=== PATIENT | male | born 1950 | race Caucasian/White ===

== ENCOUNTER 2021-05-25 08:48 | Emergency (ER) | payer OTHER ==
[~2021-05-25] VITALS: Ht 180.3 cm; Wt 117.9 kg
--- NOTE | 2021-05-25 08:55 | NUR ---
BIB [facility] IN A SITTING POSITION, CALLED 911 BECAUSE HIS BP WAS 209/117. DENIES ANY ACCOMPANYING SX. RESPIRATION REGULAR AND UNLABORED. ATTACHED TO THE MONITOR
[2021-05-25] MEDS ORDERED: hydrALAZINE HCL IV 20 MG VIAL IV ONE (09:00)
[2021-05-25] MEDS ORDERED: hydrALAZINE HCL IV 20 MG VIAL ONE (09:30)
[2021-05-25 09:31] LABS: BASOPHILS % (AUTO) 0.6 % (0.0-2.0); EOSINOPHILS % (AUTO) 2.3 % (0.0-6.0); HEMATOCRIT 35 % (39-51); HEMOGLOBIN 11.6 g/dL (13.5-17.5); LYMPHOCYTES # (AUTO) 3.1 K/uL (0.8-4.8); LYMPHOCYTES % (AUTO) 44.9 % (20.0-44.0); MEAN CORPUSCULAR HGB CONC 33 g/dl (31.0-36.0); MEAN CORPUSCULAR VOLUME 83 fL (80-96); MONOCYTES # (AUTO) 0.6 K/uL (0.1-1.30); MONOCYTES % (AUTO) 9.2 % (2.0-12.0); NEUTROPHILS # (AUTO) 2.9 K/uL (1.8-8.9); PLATELET COUNT (AUTO) 312 K/uL (150-450); RED BLOOD CELL COUNT(AUTO) 4.18 MIL/uL (4.5-6.0); WHITE BLOOD COUNT (AUTO) 6.9 K/uL (4.3-11.0)
[2021-05-25 09:42] LABS: CALCIUM, SERUM 8.7 mg/dL (8.5-10.1); CARBON DIOXIDE 24 mmol/L (21-32); CHLORIDE 101 mmol/L (98-107); GLUCOSE 254 mg/dL (74-106); POTASSIUM 4.4 mmol/L (3.5-5.1); SODIUM SERUM 137 mmol/L (136-145)
[2021-05-25 09:43] LABS: CREATININE 1.2 mg/dL (0.6-1.3); UREA NITROGEN, BLOOD 13 mg/dL (7-18)
[2021-05-25 10:56] VITALS: BP 140/85
--- NOTE | 2021-05-25 10:56 | NUR ---
IV removed. Catheter intact and site benign. Pressure and 4x4 applied to site. No bleeding noted.Patient discharged to home in stable condition. Written and verbal after care instructions given. Patient verbalizes understanding of instruction.
== END 2021-05-25 10:56 | disposition home or self-care (01) ==
LOC: ER 09:04
DX: I10 Essential (primary) hypertension (principal); E11.9 Type 2 diabetes mellitus without complications; Z60.2 Problems related to living alone
CPT/HCPCS: 36415; 71045; 80048; 84484; 85025; 93005; 96374; 99285; J0360

== ENCOUNTER 2021-10-22 04:11 | Emergency (ER) | payer OTHER ==
[~2021-10-22] VITALS: Ht 170.2 cm; Wt 99.8 kg
[2021-10-22] MEDS ORDERED: ASPIRIN 81 MG TAB.CHEW PO ONE (04:30)
[2021-10-22] MEDS ORDERED: hydrALAZINE HCL IV 20 MG VIAL IV ONE (04:30)
[2021-10-22] MEDS ORDERED: ASPIRIN 81 MG TAB.CHEW ONE (04:34)
[2021-10-22] MEDS ORDERED: hydrALAZINE HCL IV 20 MG VIAL ONE (04:34)
--- NOTE | 2021-10-22 04:37 | NUR ---
PATIENT BIBSELF C/O WAKING UP NOT FEELING WELL. PT TOOK BP AT HOME, PT NOTED IT TO BE HIGH. PATIENT IS A/O X 4, RR EVEN AND UNLABORED. NO SOB NOTED. PATIENT TAKEN TO ER BED 11. PATIENT CONNECTED TO CONTACT CENTER REPRESENTATIVE AND POX. WILL CONTINUE TO MONITOR.
--- NOTE | 2021-10-22 04:38 | NUR ---
LAC #20G S/L; PATENT AND INTACT. BLOOD COLLECTED AND SENT TO LAB
--- NOTE | 2021-10-22 04:40 | NUR ---
WAREHOUSE REPRESENTATIVE AT PT'S BEDSIDE
[2021-10-22 04:51] LABS: BASOPHILS % (AUTO) 0.6 % (0.0-2.0); HEMATOCRIT 35 % (39-51); HEMOGLOBIN 11.6 g/dL (13.5-17.5); LYMPHOCYTES # (AUTO) 3.5 K/uL (0.8-4.8); LYMPHOCYTES % (AUTO) 50.5 % (20.0-44.0); MEAN CORPUSCULAR HGB CONC 33 g/dl (31.0-36.0); MEAN CORPUSCULAR VOLUME 79 fL (80-96); MONOCYTES # (AUTO) 0.6 K/uL (0.1-1.30); MONOCYTES % (AUTO) 9.5 % (2.0-12.0); NEUTROPHILS # (AUTO) 2.6 K/uL (1.8-8.9); NEUTROPHILS % (AUTO) 37.4 % (43.0-81.0); PLATELET COUNT (AUTO) 319 K/uL (150-450); RED BLOOD CELL COUNT(AUTO) 4.45 MIL/uL (4.5-6.0); WHITE BLOOD COUNT (AUTO) 6.9 K/uL (4.3-11.0)
[2021-10-22 05:48] LABS: CARBON DIOXIDE 26 mmol/L (21-32); CHLORIDE 102 mmol/L (98-107); GLUCOSE 190 mg/dL (74-106); POTASSIUM 4.1 mmol/L (3.5-5.1); SODIUM SERUM 136 mmol/L (136-145)
[2021-10-22 05:49] LABS: CALCIUM, SERUM 9.4 mg/dL (8.5-10.1); CREATININE 1.2 mg/dL (0.6-1.3); UREA NITROGEN, BLOOD 14 mg/dL (7-18)
--- NOTE | 2021-10-22 06:17 | NUR ---
Patient discharged to home in stable condition. Written and verbal after care instructions given. Patient verbalizes understanding of instruction. IV line removed and patient ambulated out of ER with steady gait.
[2021-10-22 06:19] VITALS: BP 160/87
[2021-10-23] MEDS ORDERED: METO1TAB11 PO (07:23)
== END 2021-10-22 06:21 | disposition home or self-care (01) ==
LOC: ER 04:17
DX: I16.0 Hypertensive urgency (principal); R94.31 Abnormal electrocardiogram [ECG] [EKG]; E11.9 Type 2 diabetes mellitus without complications; Z60.2 Problems related to living alone
CPT/HCPCS: 36415; 71045; 80048; 84484; 85025; 85730; 93005; 96374; 99285; J0360

== ENCOUNTER 2021-10-23 05:55 | Emergency (ER) | payer OTHER ==
[~2021-10-23] VITALS: Ht 170.2 cm; Wt 99.8 kg
--- NOTE | 2021-10-23 06:29 | NUR ---
PT BIBS C/O HTN. PT ASYMPTOMATIC BUT STATED HE TOOK HIS MORNING BP AND NOTICED IT WAS IN THE 220S. PT HAS BEEN COMPLIENT WITH PRESCRIBED METROPROLOL AND LAST DOSE WAS AT 0500. PT DENIES C/P, CHAHAL, OR SOB. PT AWAKE AND ALERT PLACED ON MONITOR AND PT IS HYPERTENSIVE IN 200S. PA WAS AT THE BEDSIDE FOR EVAL.
[2021-10-23] MEDS ORDERED: METO1TAB11 PO (07:23)
--- NOTE | 2021-10-23 07:40 | NUR ---
PA SPEAKING TO PT AT BEDSIDE
--- NOTE | 2021-10-23 07:48 | NUR ---
Patient discharged to home in stable condition. Written and verbal after care instructions given. Patient verbalizes understanding of instruction.
[2021-10-23 07:52] VITALS: BP 152/98
== END 2021-10-23 07:52 | disposition home or self-care (01) ==
LOC: ER 05:57
DX: I10 Essential (primary) hypertension (principal); E11.9 Type 2 diabetes mellitus without complications; Z60.2 Problems related to living alone; Z79.899 Other long term (current) drug therapy

== ENCOUNTER 2021-11-08 03:27 | Emergency (ER) | payer OTHER ==
[~2021-11-08] VITALS: Ht 175.3 cm; Wt 84.4 kg
[~2021-11-08 03:27] MED LIST: METO1TAB11 PO
--- NOTE | 2021-11-08 04:00 | NUR ---
BIBSELF C/O HIGH BLOOD PRESSURE, PT AO X 3, [place] SPEAKING, DENIES ANY CHEST PAIN OR SOB.
[2021-11-08 04:27] LABS: BASOPHILS % (AUTO) 0.6 % (0.0-2.0); HEMATOCRIT 35 % (39-51); HEMOGLOBIN 11.6 g/dL (13.5-17.5); LYMPHOCYTES # (AUTO) 3.6 K/uL (0.8-4.8); LYMPHOCYTES % (AUTO) 45.2 % (20.0-44.0); MEAN CORPUSCULAR HGB CONC 34 g/dl (31.0-36.0); MEAN CORPUSCULAR VOLUME 78 fL (80-96); MONOCYTES # (AUTO) 0.6 K/uL (0.1-1.30); MONOCYTES % (AUTO) 7.7 % (2.0-12.0); NEUTROPHILS # (AUTO) 3.5 K/uL (1.8-8.9); NEUTROPHILS % (AUTO) 44.5 % (43.0-81.0); PLATELET COUNT (AUTO) 297 K/uL (150-450); RED BLOOD CELL COUNT(AUTO) 4.44 MIL/uL (4.5-6.0); WHITE BLOOD COUNT (AUTO) 7.9 K/uL (4.3-11.0)
[2021-11-08 04:44] LABS: CALCIUM, SERUM 9.2 mg/dL (8.5-10.1); CARBON DIOXIDE 30 mmol/L (21-32); CHLORIDE 92 mmol/L (98-107); GLUCOSE 144 mg/dL (74-106); POTASSIUM 3.6 mmol/L (3.5-5.1); SODIUM SERUM 128 mmol/L (136-145); UREA NITROGEN, BLOOD 14 mg/dL (7-18)
--- NOTE | 2021-11-08 05:22 | NUR ---
D/C INSTRUCTIONS GIVEN TO PT. STABLE. BP 132/66 HR 64.
[2021-11-08 05:24] VITALS: BP 132/66
== END 2021-11-08 05:31 | disposition home or self-care (01) ==
LOC: ER 03:28
DX: I10 Essential (primary) hypertension (principal); E03.9 Hypothyroidism, unspecified; E11.9 Type 2 diabetes mellitus without complications; Z60.2 Problems related to living alone; Z79.899 Other long term (current) drug therapy
CPT/HCPCS: 36415; 80048-TC; 84443-TC; 84484-TC; 85025-TC

== ENCOUNTER 2022-02-08 09:35 | Emergency (ER) | payer OTHER ==
[~2022-02-08] VITALS: Ht 167.6 cm; Wt 90.7 kg
[2022-02-08 09:46] VITALS: BP 133/79
[2022-02-08] MEDS ORDERED: BUDE180A INH (10:07)
--- NOTE | 2022-02-08 10:30 | NUR ---
Patient discharged to home in stable condition. Written and verbal after care instructions given. Patient verbalizes understanding of instruction.
== END 2022-02-08 11:28 | disposition home or self-care (01) ==
LOC: ER 09:44
DX: U07.1 COVID-19 (principal); I10 Essential (primary) hypertension; E11.9 Type 2 diabetes mellitus without complications; Z60.2 Problems related to living alone

== ENCOUNTER 2025-01-31 23:05 | Emergency (ER) | payer BC, OTHER ==
[~2025-01-31] VITALS: Ht 188 cm; Wt 93.0 kg
[~2025-01-31 23:05] MED LIST changes: +BUDE180A INH
[2025-02-01 00:46] LABS: PLATELET COUNT (AUTO) 226 K/uL (150-450); RED BLOOD CELL COUNT(AUTO) 4.29 MIL/uL (4.5-6.0); RED CELL DISTRIBUTION WIDTH 14.2 % (11.5-15.0); WHITE BLOOD COUNT (AUTO) 7.6 K/uL (4.3-11.0)
[2025-02-01 01:01] LABS: CALCIUM, SERUM 9.1 mg/dL (8.5-10.1); CREATININE 1.0 mg/dL (0.6-1.3); SODIUM SERUM 130.0 mmol/L (136-145); UREA NITROGEN, BLOOD 9.0 mg/dL (7-18)
[2025-02-01] MEDS ORDERED: BENZ-13 PO (01:50)
[2025-02-01 03:37] VITALS: BP 156/82; TEMP 98; O2SAT 97
== END 2025-02-01 03:38 | disposition home or self-care (01) ==
LOC: ER 23:10
DX: I11.9 Hypertensive heart disease without heart failure (principal); E11.9 Type 2 diabetes mellitus without complications; E87.1 Hypo-osmolality and hyponatremia; Z79.51 Long term (current) use of inhaled steroids; Z79.899 Other long term (current) drug therapy; Z60.2 Problems related to living alone
CPT/HCPCS: 36415; 71045-TC; 80048-TC; 85025-TC